=== PATIENT | female | born 1985 | race Hispanic/Latino ===

== ENCOUNTER 2020-10-22 16:34 | Inpatient (IN) | payer OTHER ==
[~2020-10-22] VITALS: Ht 175.3 cm; Wt 120.2 kg
[2020-10-22] MEDS ORDERED: CALCIUM GLUC 1GM VIAL IV PRN ×2 (17:30→20:30)
[2020-10-22] MEDS ORDERED: MAGNESIUM 4GM PREMIX 100ML 100 ML IV PRN ×2 (17:30→20:30)
[2020-10-22] MEDS ORDERED: HYDRALAZINE 20MG/ML VIAL IM SCH (17:30)
[2020-10-22] MEDS ORDERED: LACTATED RINGERS 1000ML 1,000 ML IV SCH ×2 (17:30→19:00)
[2020-10-22] MEDS ORDERED: LACTATED RINGERS 1000ML 1,000 ML IV PRN (17:30)
[2020-10-22 17:33] LABS: HEMATOCRIT 40.3 % (36-48); MEAN CORPUSCULAR HEMOGLOBIN 31.6 pg (27.0-33.0); MEAN CORPUSCULAR HGB CONC 35.2 g/dL (32.0-36.0); MEAN CORPUSCULAR VOLUME 89.8 fL (79-99); RED BLOOD CELL COUNT(AUTO) 4.49 MIL/uL (4.00-5.50); RED CELL DISTRIBUTION WIDTH 12.8 % (11.0-15.5); WHITE BLOOD COUNT (AUTO) 15.2 K/uL (4.8-10.8)
[2020-10-22] MEDS ORDERED: LACTATED RINGERS 1000ML 1,000 ML IV ONE (17:33)
[2020-10-22] MEDS ORDERED: HYDRALAZINE 20MG/ML VIAL ONE (17:34)
[2020-10-22 17:41] LABS: ALBUMIN 2.3 g/dL (3.5-5.0); BILIRUBIN,DIRECT 0.1 mg/dL (0.0-0.3); BILIRUBIN,TOTAL 0.3 mg/dL (0.2-1.0); CREATININE 1.3 mg/dL (0.5-1.5); POTASSIUM 4.3 mmol/L (3.5-5.1); TOTAL PROTEIN, SERUM 6.4 g/dL (6.0-8.3); URIC ACID 8.7 mg/dL (2.6-7.2)
[2020-10-22 17:48] LABS: APPEARANCE,URINE Cloudy (CLEAR); BILIRUBIN,URINE Negative (NEGATIVE); COLOR,URINE Yellow (YELLOW); GLUCOSE, URINE (UA) Negative (NEGATIVE); KETONES,URINE Negative (NEGATIVE); LEUKOCYTE ESTERASE ,URINE Trace (NEGATIVE); NITRATE,URINE Negative (NEGATIVE); OCCULT BLOOD,URINE Negative (NEGATIVE); PH,URINE 6.5 (5.0-8.0); PROTEIN,URINE >=1000 mg/dL (NEGATIVE)
[2020-10-22 17:53] LABS: AMPHET/METH SCREEN,URINE NEGATIVE (NEGATIVE); BARBITURATE SCREEN, URINE NEGATIVE (NEGATIVE); BENZODIAZEPINES SCREEN,URINE NEGATIVE (NEGATIVE); CANNABINOID SCREEN,URINE NEGATIVE (NEGATIVE); COCAINE SCREEN,URINE NEGATIVE (NEGATIVE); OPIATE SCREEN,URINE NEGATIVE (NEGATIVE); PHENCYCLIDINE SCREEN,URINE NEGATIVE (NEGATIVE)
[2020-10-22 18:01] LABS: AMORPHOUS SEDIMENT,UR Few /LPF (None Seen); BACTERIA,URINE Few /HPF (None Seen); MUCUS,URINE Few LPF (None Seen); SQUAMOUS EPITHELIAL CELL,UR Few /HPF (0-2)
[2020-10-22 18:07] LABS: INR 0.91 (0.85-1.15)
[2020-10-22 18:09] LABS: PARTIAL THROMBOPLASTIN TIME 29.9 SEC (26.3-35.5)
[2020-10-22] MEDS: CELESTONE SOLUSPAN 6 MG/ML 5ML VIAL IM SCH (18:26)
[2020-10-22] MEDS: MAGNESIUM SULFATE 40GM/1000ML 1,000 ML IV PRN (18:30)
[2020-10-22] MEDS ORDERED: 0.2% ROPIVACAINE 600ML Q-PUMP MISC SCH (19:00)
[2020-10-22] MEDS ORDERED: CEFAZOLIN SODIUM 1 GM VIAL IVP PRN (19:00)
[2020-10-22] MEDS ORDERED: ROPIVACAINE 0.2% 100ML VIAL 100 ML EP SCH (19:00)
[2020-10-22] MEDS ORDERED: LABETALOL 20MG SYG IV ONE (19:00)
[2020-10-22] MEDS ORDERED: CALDOLOR 800MG+NS 250ML 250 ML IV PRN (19:00)
[2020-10-22] MEDS ORDERED: HYDRALAZINE 20MG/ML VIAL IV SCH (19:00)
[2020-10-22] MEDS ORDERED: LABETALOL 20MG VIAL IV ONE (19:06)
[2020-10-22] MEDS ORDERED: MORPHINE PF 100MG/10ML AMP IV ONE (19:18)
[2020-10-22] MEDS ORDERED: PORACTANT ALFA 240 MG/3 ML VIAL IH ONE ×2 (19:20→19:21)
[2020-10-22] MEDS ORDERED: MISOPROSTOL 200 MCG TABLET ONE (19:37)
[2020-10-22] MEDS ORDERED: ONDANSETRON 4MG INJ ONE (19:49)
[2020-10-22] MEDS ORDERED: OXYTOCIN 10 USP UNITS/ML ONE ×2 (19:49→19:54)
[2020-10-22] MEDS ORDERED: OXYTOCIN-LR 20 UNITS/1000 ML 1,000 ML IV ONE (20:23)
[2020-10-22] MEDS ORDERED: OXYTOCIN 10 USP UNITS/ML IV PRN (20:30)
[2020-10-22] MEDS ORDERED: PROMETHAZINE HCL 25 MG/ML 1ML AMPULE IM PRN (20:30)
[2020-10-22] MEDS: LACTATED RINGERS 1000ML 1,000 ML IV SCH (20:30)
[2020-10-22] MEDS ORDERED: MAGNESIUM SULFATE 40GM/1000ML 1,000 ML IV PRN (20:30)
[2020-10-22] MEDS ORDERED: 0.9%NACL 10ML VIAL IVP PRN (20:30)
[2020-10-22] MEDS ORDERED: DEXTROSE 5 %-0.45 % NACL 1,000 ML IV PRN (20:30)
[2020-10-22] MEDS ORDERED: OXYTOCIN-LR 20 UNITS/1000 ML 1,000 ML IV PRN (20:30)
[2020-10-22] MEDS ORDERED: MEPERIDINE-PF 75 MG/ML SYG IM PRN (20:30)
[2020-10-22] MEDS: CALDOLOR 800MG+NS 250ML 250 ML IV SCH (20:47)
[2020-10-22] MEDS ORDERED: LABETALOL HCL 100 MG TABLET ONE (22:46)
[2020-10-22] MEDS: HYDRALAZINE 20MG/ML VIAL IV SCH (22:55)
[2020-10-22] MEDS: LABETALOL HCL 100 MG TABLET PO SCH (22:56)
[2020-10-23] MEDS ORDERED: LABETALOL 20MG SYG IV ONE ×2 (01:30→01:35)
[2020-10-23] MEDS ORDERED: LABETALOL 20MG VIAL IV ONE ×2 (02:30→03:45)
[2020-10-23] MEDS ORDERED: LABETALOL 20MG VIAL IV PRN (02:30)
[2020-10-23] MEDS: CALDOLOR 800MG+NS 250ML 250 ML IV SCH (04:43)
[2020-10-23] MEDS ORDERED: NALOXONE HCL 0.4 MG/1 ML ML IVP PRN (06:30)
[2020-10-23] MEDS ORDERED: ONDANSETRON 4MG INJ IVP PRN (06:30)
[2020-10-23] MEDS ORDERED: EPHEDRINE SULFATE 50 MG/ML AMPULE IVP PRN (06:30)
[2020-10-23] MEDS ORDERED: DiphenhydrAMINE HCL 50 MG/ML VIAL IVP PRN (06:30)
[2020-10-23 07:04] LABS: HEMATOCRIT 39.5 % (36-48); MEAN CORPUSCULAR HGB CONC 34.7 g/dL (32.0-36.0); MEAN CORPUSCULAR VOLUME 89.4 fL (79-99); RED BLOOD CELL COUNT(AUTO) 4.42 MIL/uL (4.00-5.50); RED CELL DISTRIBUTION WIDTH 12.7 % (11.0-15.5); WHITE BLOOD COUNT (AUTO) 23.5 K/uL (4.8-10.8)
[2020-10-23] MEDS: LABETALOL HCL 100 MG TABLET PO SCH ×2 (09:00→20:43)
[2020-10-23] MEDS: LACTATED RINGERS 1000ML 1,000 ML IV SCH (09:50)
[2020-10-23 10:07] LABS: RAPID PLASMA REAGIN NONREACTIVE (NONREACTIVE)
[2020-10-23] MEDS ORDERED: HYDRALAZINE 20MG/ML VIAL IV SCH (10:30)
[2020-10-23] MEDS: MAGNESIUM SULFATE 40GM/1000ML 1,000 ML IV PRN (17:15)
[2020-10-23] MEDS: CELESTONE SOLUSPAN 6 MG/ML 5ML VIAL IM SCH (17:30)
[2020-10-23] MEDS: IBUPROFEN 800 MG TAB PO SCH (20:30)
[2020-10-23] MEDS: HYDRALAZINE 20MG/ML VIAL IV SCH ×2 (21:30→23:00)
[2020-10-23] MEDS ORDERED: PREN1TAB80 PO (23:06)
[2020-10-23] MEDS ORDERED: NIFE30TA98 PO (23:06)
[2020-10-23] MEDS ORDERED: AEC81 PO (23:06)
[2020-10-23] MEDS ORDERED: FOLI0.8C PO (23:06)
[2020-10-24] MEDS: IBUPROFEN 800 MG TAB PO SCH ×3 (02:43→21:00)
[2020-10-24] MEDS ORDERED: BISACODYL 10 MG SUPP.RECT RC PRN (08:30)
[2020-10-24] MEDS ORDERED: IBUPROFEN 600 MG TABLET PO PRN (08:30)
[2020-10-24] MEDS ORDERED: ACETAMINOPHEN WITH CODEINE 1 TAB TAB PO PRN (08:30)
[2020-10-24] MEDS: MEASLES/MUMPS/RUBELLA VACCINE, LIVE 0.5 ML/VIAL SQ SCH (08:30)
[2020-10-24] MEDS ORDERED: ACETAMINOPHEN 500 MG TABLET PO PRN (08:30)
[2020-10-24] MEDS: DOCUSATE SODIUM 100 MG CAP PO SCH ×2 (08:41→21:00)
[2020-10-24] MEDS: LABETALOL HCL 100 MG TABLET PO SCH ×2 (08:42→21:01)
[2020-10-24 10:40] VITALS: BP 130/92
[2020-10-24] MEDS ORDERED: AMMONIA 1 EA AMP IH ONE (12:02)
[2020-10-24 13:11] LABS: HEPATITIS Bs ANTIGEN SCREEN P Negative (Negative)
[2020-10-24] MEDS: SIMETHICONE 80 MG TAB.CHEW PO PRN ×2 (13:49→21:00)
[2020-10-24 16:00] VITALS: BP 130/80
[2020-10-24] MEDS: HYDROCODONE/ACETAMINOPHEN 5/325 MG TAB PO PRN (16:03)
[2020-10-24] MEDS: DIPH,PERTUSS(ACELL),TET VAC/PF 0.5 ML VIAL IM SCH (16:04)
[2020-10-24 19:30] VITALS: BP 147/89
[2020-10-24] MEDS: HYDRALAZINE 20MG/ML VIAL IV SCH (21:30)
[2020-10-24 23:45] VITALS: BP 144/91
[2020-10-25 03:15] VITALS: BP 120/87
[2020-10-25] MEDS: IBUPROFEN 800 MG TAB PO SCH ×3 (04:44→20:22)
[2020-10-25 07:08] VITALS: BP 106/85
[2020-10-25] MEDS: SIMETHICONE 80 MG TAB.CHEW PO PRN ×3 (07:46→20:21)
[2020-10-25] MEDS: LABETALOL HCL 100 MG TABLET PO SCH (07:46)
[2020-10-25] MEDS: DOCUSATE SODIUM 100 MG CAP PO SCH ×2 (07:46→20:22)
[2020-10-25] MEDS: HYDROCODONE/ACETAMINOPHEN 5/325 MG TAB PO PRN (07:46)
[2020-10-25] MEDS: DIPH,PERTUSS(ACELL),TET VAC/PF 0.5 ML VIAL IM SCH (08:30)
[2020-10-25] MEDS: MEASLES/MUMPS/RUBELLA VACCINE, LIVE 0.5 ML/VIAL SQ SCH (08:30)
[2020-10-25 11:19] VITALS: BP 151/93
[2020-10-25 15:46] VITALS: BP 157/87
[2020-10-25 19:32] VITALS: BP 166/90
[2020-10-25] MEDS ORDERED: LABETALOL HCL 100 MG TABLET PO SCH (21:00)
[2020-10-25 23:16] VITALS: BP 162/98
[2020-10-26] VITALS (8 sets, daily range): BP systolic 120–177; BP diastolic 67–99
[2020-10-26] MEDS: IBUPROFEN 800 MG TAB PO SCH ×3 (04:34→20:37)
[2020-10-26 07:34] LABS: HEMATOCRIT 33.6 % (36-48); MEAN CORPUSCULAR HEMOGLOBIN 31.7 pg (27.0-33.0); MEAN CORPUSCULAR HGB CONC 33.6 g/dL (32.0-36.0); MEAN CORPUSCULAR VOLUME 94.1 fL (79-99); RED BLOOD CELL COUNT(AUTO) 3.57 MIL/uL (4.00-5.50); RED CELL DISTRIBUTION WIDTH 13.3 % (11.0-15.5); WHITE BLOOD COUNT (AUTO) 15.8 K/uL (4.8-10.8)
[2020-10-26 08:01] LABS: INR 0.96 (0.85-1.15); PROTHROMBIN TIME 10.5 SEC (9.6-11.6)
[2020-10-26 08:02] LABS: PARTIAL THROMBOPLASTIN TIME 25.9 SEC (26.3-35.5)
[2020-10-26 08:03] LABS: BILIRUBIN,TOTAL 0.3 mg/dL (0.2-1.0); CREATININE 0.7 mg/dL (0.5-1.5); TOTAL PROTEIN, SERUM 5.6 g/dL (6.0-8.3); URIC ACID 5.7 mg/dL (2.6-7.2)
[2020-10-26] MEDS ORDERED: HYDRALAZINE 20MG/ML VIAL IV SCH (08:30)
[2020-10-26] MEDS: LABETALOL HCL 100 MG TABLET PO SCH ×2 (09:40→20:36)
[2020-10-26] MEDS: SIMETHICONE 80 MG TAB.CHEW PO PRN ×2 (09:40→13:47)
[2020-10-26] MEDS: NIFEDIPINE 10 MG CAP PO SCH ×3 (09:40→20:39)
[2020-10-26] MEDS: DOCUSATE SODIUM 100 MG CAP PO SCH ×2 (09:40→20:36)
[2020-10-26] MEDS: MEASLES/MUMPS/RUBELLA VACCINE, LIVE 0.5 ML/VIAL SQ SCH (20:37)
[2020-10-26] MEDS ORDERED: METHY500 PO (20:50)
[2020-10-27 04:04] VITALS: BP 141/78
[2020-10-27] MEDS: IBUPROFEN 800 MG TAB PO SCH ×2 (04:13→14:23)
[2020-10-27 07:06] VITALS: BP 162/82
[2020-10-27] MEDS: SIMETHICONE 80 MG TAB.CHEW PO PRN ×2 (08:27→14:16)
[2020-10-27] MEDS: DOCUSATE SODIUM 100 MG CAP PO SCH (08:27)
[2020-10-27] MEDS: LABETALOL HCL 100 MG TABLET PO SCH (08:28)
[2020-10-27] MEDS: NIFEDIPINE 10 MG CAP PO SCH ×2 (09:44→14:17)
[2020-10-27 11:31] VITALS: BP 136/87
== END 2020-10-27 15:35 | disposition home or self-care (01) | DRG 787 ==
LOC: EDH 16:34 → LDH 16:35 → OBSVTOIN 16:35 → WSH 10-24 10:40
PROVIDERS: ADMIT Obstetrics & Gynecology; ATTEND Obstetrics & Gynecology
PROC: 3E0234Z Introduction of Serum, Toxoid and Vaccine into Muscle, Percutaneous Approach (ICD-10-PCS; 2020-10-22)
PROC: 10D00Z1 Extraction of Products of Conception, Low, Open Approach (ICD-10-PCS; principal; 2020-10-22 19:48)
DX: O11.4 Pre-existing hypertension with pre-eclampsia, complicating childbirth (principal); O41.03X0 Oligohydramnios, third trimester, not applicable or unspecified; Z3A.33 33 weeks gestation of pregnancy; O99.214 Obesity complicating childbirth; E66.9 Obesity, unspecified; Z37.0 Single live birth; Z23 Encounter for immunization
CPT/HCPCS: 36415; 59510; 76805; 80048; 80053; 80076; 80305; 81001; 82044; 83735; 84550; 85027; 85384; 85610; 85730; 86592; 86701; 86850; 86900; 86901; 87340; 87390; 90707; 90715; A4314; A4344; G0378; J0360; J0690; J0702; J1741; J2274; J2405; J2590; J3475; J3490; J7120